=== PATIENT | female | born 1940 | race Caucasian/White ===

== ENCOUNTER 2020-08-11 09:06 | Observation (INO) | payer MEDICARE, SELFPAY ==
[2020-08-11] VITALS (22 sets, daily range): BP systolic 140–210; BP diastolic 51–102; PULSE 61–85; RESP 12–21; TEMP 36–36.8; O2SAT 93–98; BMI 24.5
--- NOTE | 2020-08-11 | ECHO_ITS ---
Patient Info Name: Reean Knapp Age: 80 years : 1940 Gender: Female Ht: 65 in Wt: 144 lbs BSA: 1.74 m2 HR: 70 bpm BP: 166 / 76 mmHg Heart Rhythm: Sinus Rhythm Technical Quality: Good Exam Date: 08/11/2020 1:27 PM Exam Location: [facility] Pulmonary Patient Status: Inpatient Admit Date: 08/11/2020 Staff Ordering Physician: Marj Shultz NP [employer] Off Bearer: Hector Rea RDCS, RT Attending Provider: Adam Quezada MD Exam Type: CA echo doppler color flow Study Info Complete two-dimensional, color flow and Doppler transthoracic echocardiogram is performed. Strain analysis performed. Summary 1. Complete two-dimensional, color flow and Doppler transthoracic echocardiogram is performed. 2. Normal left ventricular size with mild concentric left ventricular hypertrophy. Overall good left ventricular systolic function with a calculated ejection fraction of 62% and the visual ejection fraction 55-60%. No segmental wall motion abnormalities. Global longitudinal strain was -14% consistent with early systolic dysfunction. Diastolic dysfunction is present. 3. Left atrial chamber dimension is mildly enlarged. 4. There is mild to moderate aortic valve regurgitation. 5. There is mild mitral valve regurgitation. 6. There is mild tricuspid valve regurgitation. 7. Moderate pulmonary hypertension, estimated pulmonary arterial systolic pressure is 46 mmHg. 8. Dilated inferior vena cava with >50% collapse upon inspiration consistent with elevated right atrial pressure, 15 mmHg. 9. Normal sinus rhythm. Left Ventricle Left ventricular chamber dimension is normal. Left ventricular systolic function is normal, estimated at 55-60%. There is mildly increased left ventricular wall thickness. Left ventricular septal wall motion is normal. The left ventricular diastolic function is normal. E/e' 12.1 is moderately elevated. Right Ventricle Right ventricular chamber dimension is normal. Right ventricular systolic function is normal. Left Atria Left atrial chamber dimension is mildly enlarged. Right Atria Right atrial chamber dimension is normal. Aortic Valve The aortic valve is trileaflet. There is no aortic valve sclerosis. There is no aortic valve stenosis. There is mild to moderate aortic valve regurgitation. Pulmonic Valve The pulmonic valve is normal. There is no pulmonic valve stenosis. There is trace pulmonic regurgitation. Mitral Valve The mitral valve has thickened leaflets. There is no mitral valve stenosis. There is mild mitral valve regurgitation. Tricuspid Valve The tricuspid valve leaflets are normal. There is no significant tricuspid valve stenosis. There is mild tricuspid valve regurgitation. Moderate pulmonary hypertension, estimated pulmonary arterial systolic pressure is 46 mmHg. Pericardium/Pleural The pericardium appears normal. There is no pericardial effusion. Inferior Vena Cava Dilated inferior vena cava with >50% collapse upon inspiration consistent with elevated right atrial pressure, 15 mmHg. Aorta The aortic root size at the sinus of Valsalva is normal. The prox ascending aorta size is normal. Left Ventricular Outflow Tract Name Value Normal LVOT 2D LVOT Diame
--- NOTE | 2020-08-11 09:33 | ECG_ITS ---
Measurements Intervals [place] Rate: 72 P: 77 [place]: 172 QRS: 59 QRSD: 93 T: 29 QT: 407 QTc: 448 Interpretive Statements SINUS RHYTHM VENTRICULAR PREMATURE COMPLEXES VOLTAGE CRITERIA FOR LVH BASELINE ARTIFACT- II, III, AVR, AVF, V1, V3-V6 BORDERLINE ECG Electronically Signed On 08-11-2020 9:58:27 CDT by Keo Bates D.O.
--- NOTE | 2020-08-11 09:34 | ED.GENADULT ---
HPI - General Adult General Chief complaint: Unspecified <NELLY Camacho - Last Filed: 08/11/20 11:34> Stated complaint: elevated BP <NELLY Camacho - Last Filed: 08/11/20 11:34> Time Seen by Provider: 08/11/20 09:24 <NELLY Camacho - Last Filed: 08/11/20 11:34> Source: patient <Vickie MNELLY Villalobos - Last Filed: 08/11/20 11:34> Mode of arrival: ambulatory <NELLY Camacho - Last Filed: 08/11/20 11:34> Limitations: no limitations <NELLY Camacho - Last Filed: 08/11/20 11:34> History of Present Illness HPI narrative: Patient is an 80-year-old female who presents this morning with hypertension. Patient reports that BP meds increased last week from 25mg to 50mg of metoprolol. She denies chest pain or shortness of breath. Reports checking BP this morning and was elevated. Patient sees Saritha Rebollar APN at Dr. Argueta's office. <NELLY Camacho - Last Filed: 08/11/20 11:34> Related Data Home medications: Home Medications Medication Instructions Recorded Confirmed cholecalciferol (vitamin D3) 25 1,000 unit PO DAILY 03/12/19 08/03/20 mcg (1,000 unit) capsule <NELLY Camacho - Last Filed: 08/11/20 11:34> Allergies/adverse reactions: Allergies Allergy/AdvReac Type Severity Reaction Status Date / Time No Known Allergies Allergy Verified 08/11/20 09:23 <NELLY Camacho - Last Filed: 08/11/20 11:34> Review of Systems Review of Systems: Narrative: CONSTITUTIONAL: Denies fever, chills, or sweats. EYES: Denies visual changes, redness, or discharge. ENT: Denies rhinorrhea, congestion, sore throat, or otalgia. CARDIOVASCULAR: Denies chest pain, palpitations, or edema. Reports hypertension. RESPIRATORY: Denies cough or dyspnea. GASTROINTESTINAL: Denies abdominal pain, nausea, vomiting, or diarrhea. GENITOURINARY: Denies dysuria or hematuria. SKIN: Denies rash or itching. MUSCULOSKELETAL: Denies back pain, joint pain, or myalgia. NEUROLOGIC: Denies headache, numbness, dizziness, or weakness. PSYCHIATRIC: Denies anxiety or depression. <NELLY Camacho - Last Filed: 08/11/20 11:34> [facility] Past Medical History Medical History: Medical History Chicken pox Cholecystectomy planned 2007 Fibroid tumor Foot pain Measles Mononucleosis Osteopenia Palpitations Sleep apnea <NELLY Camacho - Last Filed: 08/11/20 11:34> Surgical History Surgical History: Surgical History H/O myomectomy H/O: hysterectomy 1988 History of appendectomy 1951 <NELLY Camacho - Last Filed: 08/11/20 11:34> Family History Family History: Family History Father Hypertension, Onset Age: 53 Subdural hematoma Mother Patient's mother is , Onset Age: 93 Hip fracture <NELLY Camacho - Last Filed: 08/11/20 11:34> Social History Social History: Social History (Updated 08/11/20 @ 11:17 by NELLY Camacho) Smoking status: Never smoker Alcohol intake: current Alcohol use details: occasional Substance use: never Living arrangements: with family Gender identity (if verbalized by the patient): Female <NELLY Camacho - Last Filed: 08/11/20 11:34> Comments At the time of signature, I have reviewed and agree with nursing past medical, surgical, social, and family history unless otherwise noted. Please see nursing chart for further information. There is no relevant family history pertinent to the presenting complaint. <NELLY Camacho - Last Filed: 08/11/20 11:34> Exam Narrative: Exam Narrative: GENERAL: Well-appearing, well-nourished, and in no acute distress. HEAD: Normocephalic, atraumatic. EYES: EOMI. No redness or drainage. Conjunctiva are normal
[2020-08-11] MEDS: LABETALOL HCL INJ 100 MG/20 ML VIAL 20 MG IV PUSH (09:55)
[2020-08-11 09:59] LABS: Basophils Absolute Auto 0.1 K/mm3 (0.0-0.1); Basophils Percent Auto 0.8 % (0.2-1.2); Eosinophils Absolute Auto 0.1 K/mm3 (0-0.3); Eosinophils Percent Auto 1.3 % (0-4.4); Hematocrit 39.1 % (37.0-47.0); Hemoglobin 12.6 g/dL (12.0-15.0); Immature Granulocyte Absolute 0.02 K/mm3 (0.00-0.031); Immature Granulocyte Percent A 0.3 % (0-0.5); Lymphocytes Absolute Auto 1.64 K/mm3 (0.9-3.2); Mean Corpuscular HGB Conc 32.2 g/dl (32-36); Mean Corpuscular Hemoglobin 30.3 pg (26-34); Mean Platelet Volume 12.9 fl (7.4-10.4); Monocytes Absolute Auto 0.7 K/mm3 (0.1-0.6); Monocytes Percent Auto 8.8 % (2.6-8.5); Neutrophils Percent Auto 66.8 % (45.5-73.1); Platelet Count Result 160 k/mm3 (150-375); Red Blood Count 4.16 M/mm3 (4.2-5.4); Red Cell Distribution Width 13.2 % (11.5-14.5); White Blood Count 7.5 K/mm3 (4.5-10.0)
[2020-08-11 10:09] LABS: Alanine Aminotransferase 20 U/L (4-35); Albumin Level 3.8 g/dL (3.5-5.1); Alkaline Phosphatase 66 U/L (38-126); Anion Gap 8 mmol/L (8-16); Aspartate Amino Transferase 30 U/L (14-36); Bilirubin,Total 0.3 mg/dL (0.2-1.3); Blood Urea Nitrogen 18 mg/dL (7-17); Calcium 9.4 mg/dL (8.4-10.2); Carbon Dioxide 25 mmol/L (22-30); Chloride 108 mmol/L (98-107); Estimated CRCL calculation 44 ml/min; Estimated Glomerular Filt Rate > 60; Glucose 95 mg/dL (65-105); Sodium 141 mmol/L (137-145)
[2020-08-11 11:07] LABS: Troponin I < 0.012 ng/mL (0.000-0.034)
--- NOTE | 2020-08-11 13:14 | ADMGEN ---
This patient, Reena Knapp, was admitted to [facility] Surg Room 325-01. Patient/family oriented to hospital policies and general routines including ID bracelet, bed and alarms, visiting hours, pain management, procedures, bathroom and other care routines, personal items, smoking policy, room service/diet, and visiting hours. Information on how to activate the Rapid Response Team has been discussed. Patient/Family are encouraged to report perceived risks to care and to ask questions if they do not understand what they are told or what they should do.
[2020-08-11 13:38] LABS: Troponin I < 0.012 ng/mL (0.000-0.034)
--- NOTE | 2020-08-11 15:19 | PM.IMHP ---
H&P: HPI History of Present Illness Date/Time: 08/11/20 15:19 This is a 80-year-old female patient who has a history of hypertension. The patient was on low-dose metoprolol for many years. She stated that she initially was placed on metoprolol due to palpitations that she was having. However her blood pressures continue to increase and so they doubled up on her metoprolol 1 week ago. The patient stated that she was constantly checking her blood pressures and they still continue to go up. Today she noticed that her systolic was over 200 after taking her medications. She does not understand why her blood pressures continue to go up. She stated she did eat a couple salty meals this weekend but did not think that would cause it. The patient has been taking metoprolol 50 mg extended relief for 1 week now without any change in her blood pressure. The patient was given labetalol in the emergency room. Her highest blood pressure reading was 210/99 in the emergency room. Her most recent blood pressure is down to 156/77. She has no chest pain or palpitations. No complaints of any anxiety. She states she does have sleep apnea and she uses her CPAP machine. The patient is being admitted for observation on the date of service of 08/11/2020. Chief Complaint: hypertensive urgency Review of Systems Review of Systems: All systems reviewed & are unremarkable except as noted in HPI and below Constitutional: Constitutional: Reports as per HPI and Reports no additional constitutional complaints Eyes: Eyes: Reports as per HPI and Reports no additional eye complaints ENT: Reports system reviewed and no additional complaints, except as documented and Reports Normal hearing present Cardiovascular: Cardiovascular: Reports no additional cardiovascular complaints Respiratory: Respiratory: Reports no additional respiratory complaints and Reports no additional respiratory complaints Gastrointestinal: Gastrointestinal: Reports as per HPI and Reports no additional gastrointestinal complaints Musculoskeletal: Musculoskeletal: Reports no additional musculoskeletal complaints Integumentary/Breasts: Skin/Breast: Reports system reviewed and no additional complaints, except as docu and Reports as per HPI Neurologic: Reports system reviewed and no additional complaints, except as documented, Reports as per HPI and Reports Normal hearing present Psychiatric: Psychiatric: Reports no additional psychiatric complaints and Reports as per HPI Endocrine: Endocrine: Reports no additional endocrine complaints Hematologic/Lymphatic: Hematologic/Lymphatic: Reports no additional hematologic/lymphatic complaints Allergic/Immunologic: Allergic/Immunologic: Reports no additional allergic/immunologic complaints [facility] Past Medical History Medical History Chicken pox Cholecystectomy planned 2007 Fibroid tumor Foot pain Measles Mononucleosis Osteopenia Palpitations Sleep apnea Surgical History Surgical History H/O myomectomy H/O: hysterectomy 1988 History of appendectomy 1951 Family History Family History Father Hypertension, Onset Age: 53 Subdural hematoma Mother Patient's mother is , Onset Age: 93 Hip fracture Social History Social History (Updated 08/11/20 @ 15:26 by Marj Shultz NP) Social History: The patient smoked briefly when she was in high school. 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 She is and lives with her he is a durable power insurance attorney for healthcare. The patient is a full code. The patient has 1 child. She occasionally drinks a glass a wine she does not use any marijuana or illicit drugs. Smoking status: Never smoker Second hand tobacco smoke exposure: No Alcohol intak
[2020-08-11 16:58] LABS: Troponin I < 0.012 ng/mL (0.000-0.034)
[2020-08-11] MEDS: ACETAMINOPHEN 325 MG TABLET 650 MG PO (20:32)
[2020-08-12] VITALS: PULSE 63
[2020-08-12 04:00] VITALS: PULSE 63
[2020-08-12 05:52] VITALS: BP 152/76; PULSE 64; RESP 16; TEMP 36.2; O2SAT 93
[2020-08-12 06:12] LABS: Hematocrit 38.9 % (37.0-47.0); Hemoglobin 12.9 g/dL (12.0-15.0); Mean Corpuscular HGB Conc 33.2 g/dl (32-36); Mean Corpuscular Hemoglobin 30.4 pg (26-34); Mean Corpuscular Volume 91.5 fl (80-100); Mean Platelet Volume 12.9 fl (7.4-10.4); Platelet Count Result 167 k/mm3 (150-375); Red Blood Count 4.25 M/mm3 (4.2-5.4); Red Cell Distribution Width 13.2 % (11.5-14.5); White Blood Count 5.9 K/mm3 (4.5-10.0)
[2020-08-12 06:22] LABS: Lactic Acid Reflex 0.9 mmol/L (0.7-2.1)
[2020-08-12 06:25] LABS: Alanine Aminotransferase 19 U/L (4-35); Albumin Level 3.7 g/dL (3.5-5.1); Alkaline Phosphatase 67 U/L (38-126); Anion Gap 7 mmol/L (8-16); Aspartate Amino Transferase 30 U/L (14-36); Bilirubin,Total 0.4 mg/dL (0.2-1.3); Blood Urea Nitrogen 15 mg/dL (7-17); Calcium 9.3 mg/dL (8.4-10.2); Carbon Dioxide 27 mmol/L (22-30); Chloride 106 mmol/L (98-107); Estimated CRCL calculation 50 ml/min; Estimated Glomerular Filt Rate > 60; Glucose 99 mg/dL (65-105); Sodium 140 mmol/L (137-145)
[2020-08-12 06:45] LABS: Band Neutrophils Percent 1 % (0-6); Eosinophils Absolute Manual 0.23 K/mm3 (0.02-0.5); Eosinophils Percent Manual 4 % (0-4); Lymphocytes Absolute Manual 1.88 K/mm3 (1.1-4.5); Monocytes Absolute Manual 0.53 K/mm3 (0.1-0.90); Monocytes Percent Manual 9 % (3-9); Neutrophils Absolute Manual 3.24 K/mm3 (1.7-7.2); Neutrophils Percent Manual 54 % (46-73); Total Cells Counted 100
[2020-08-12 06:46] LABS: Platelet Estimate Adequate (Adequate)
[2020-08-12 08:00] VITALS: PULSE 80
[2020-08-12] MEDS: METOPROLOL SUCCINATE EXT REL 25 MG, METOPROLOL SUCCINATE EXT REL 50 MG 75 MG PO (08:32)
[2020-08-12] MEDS: ENOXAPARIN 40 MG/0.4 ML SYRINGE SUB-Q (08:34)
[2020-08-12] MEDS: amLODIPine BESYLATE 5 MG TABLET PO (08:34)
[2020-08-12] MEDS: ACETAMINOPHEN 325 MG TABLET 650 MG PO (08:36)
[2020-08-12 10:10] VITALS: BP 174/74
--- NOTE | 2020-08-12 11:32 | PM.DS ---
DS: Admitting Diagnosis Admitting Diagnosis Admitting Diagnosis: Elevated blood pressure DS: Discharge Diagnosis Discharge Diagnosis (1) Hypertensive urgency: Code(s): I16.0 - Hypertensive urgency Status: Acute DS: Summary Hospital Course Hospital Course: The patient is an 80-year-old woman with a history of hypertension, who presented to the emergency room with elevated blood pressures of 180 systolic. The patient otherwise had a headache and was concerned about her blood pressure. She states 1 week ago she was at her ENT doctor appointment and at that time her blood pressure was 200 systolic. She became very concerned with this into an appointment with her primary care provider who she saw in the increased her metoprolol from 25 mg daily to 50 mg daily. She continue to check her blood pressure multiple times a day and continue to have elevated blood pressure readings. She became concerned prior to arrival and blood pressure was elevated in tried to contact her primary care provider. They did not get back to her quick enough so he decided to come to the ER for further evaluation. Initial vitals showed she was afebrile, non tachycardic, elevated blood pressure at 210/99, normal oxygenation respiratory rate on room air. Initial labs were normal with a CBC with differential, CMP, and negative troponins x3. The patient was given labetalol in the emergency room with some improvement of her blood pressure. The patient was admitted into the hospital for elevated blood pressure and monitoring of her symptoms. Echocardiogram was obtained which showed normal LV size, mild concentric LVH, normal EF at 62%, diastolic dysfunction. Moderate pulmonary hypertension for which she is already on a CPAP at night. Patient was started on 5 mg of amlodipine in the morning, increased her metoprolol to 75 mg and observed on telemetry overnight. Her blood pressure this morning was 152/76 in overnight was 140/70. This is improvement from her arrival and we do not want to drop her blood pressure too much, needs to gradually decrease over time. Patient's heart rate remained stable on telemetry with signs of arrhythmia. The patient was anxious upon my evaluation of her with a list of questions and concerns about her elevated blood pressure readings. The patient has been under some stress with family coming in this weekend, she did eat a lot of salty foods this past weekend. I explained to her that she needs to be on a low salt diet, I recommended not taking her blood pressure for a few days unless she is feeling symptomatic with lightheadedness, dizziness, headache. I called her primary care provider in talk to their nurse practitioner Vickie Rebollar who had just seen the patient week prior for her elevated blood pressure readings. I explained to her starting amlodipine and they will get her in on Monday08/14/2020 for a blood pressure check follow-up. Patient also has an annual examination next week. the patient understands and agrees with the plan return to ER warnings given. all questions answered. Status at Discharge Cognitive/behavioral status at discharge: Stable, improved. Time Spent with Patient Time attestation: Total time spent providing and/or coordinating discharge services: 43 Time spent: Greater than 30 minutes Exam Narrative: Exam Narrative: General: 80-year-old woman sitting up in bed, watching TV. Appears comfortable, slightly anxious. In no acute distress. Skin: No jaundice or cyanosis. Good skin turgor. Neck: Full range of motion. Supple. Respiratory: Lungs are clear to auscultation bilaterally. No bony chest wall tenderness. Cardiovascular: The heart has a regular rate and rhythm without murmur. No carotid bruits bilaterally. Lower extremities: No lower extremity edema. Distal pulses are easily palpated. No calf tenderness to palpation. Gastrointestinal: The abdome
[2020-08-12 12:00] VITALS: PULSE 67
--- NOTE | 2020-08-12 13:13 | PC.NURSE ---
Pt has been discharged. IV has been removed and tele monitor has been removed. Pt and her have had discharge instructions reviewed with them, and both exhibited good understanding of discharge instructions. Pt was assisted to the front of the building in a wheelchair by staff.
== END 2020-08-12 12:55 | disposition home or self-care (01) ==
LOC: ANHED 11:32 → ANH3MEDSUR 12:26
PROVIDERS: Nurse Practitioner; Admitting Provider Family Medicine; Emergency Provider Nurse Practitioner; PCP Internal Medicine; Visit Provider Internal Medicine
DX: I16.0 Hypertensive urgency (principal); I10 Essential (primary) hypertension
CPT/HCPCS: 36415; 80053; 83605; 83735; 84443; 84484; 85025; 93005; 93306; 96372; 96374; 99285; A9270; G0378; J1650

== ENCOUNTER 2020-09-16 07:25 | Outpatient (CLI) | payer MEDICARE, SELFPAY ==
--- NOTE | 2020-10-12 12:19 | WPDSLEEPSTUD ---
Sleep Study Date of Study: 09/16/20 Ordering Provider: Saritha Rebollar NP Interpreting Physician: Fatmata Leon MD Sleep Study Type: Split Polysomnogram Height: 1.65 m Weight: 65.771 kg Body Mass Index: 24.1 Neck Circumference (inches): 14 [place]: 7 Reason for Sleep Study Loud snoring, witnessefd apnea Sleep History Reena Knpap is an 80 year old female with a history of bad snoring for years, witnessed apnea. She was tested and found to have obstructive sleep apnea and started on CPAP. Recently while admitted for blood pressure problem, obstructive sleep apnea was suspected to be part of her current problem. She does not awaken from sleep feeling short of breath or having nighttime heartburn, belching or coughing. She rarely has trouble sleep with a cold. She does not wake up gasping for breath at night or sweats excessively at night. She rarely notices her heart pounding or beating irregularly night. She rarely falls asleep during the day. She occasionally falls asleep while watching the 10:00 a.m. use at night. She does not fall asleep while driving. She does not have loss of muscle tone with strong emotion. She does not have daytime difficulties due to excessive sleepiness. She does not feel paralyzed on waking or falling asleep. She does not have vivid dream like seems upon awakening or falling asleep. She does not feel afraid to go to sleep. She denies nightmares. She remembers her dreams and rarely has racing thoughts. She does not feel sad or depressed. She occasionally has anxiety. She rarely has muscular tension. She does not notice part of her body jerking and she does not kick at night. She does not have crawling and aching feelings in her legs. She frequently has hip pain at night. She does not grind her teeth during sleep. She frequently has bothered by pain during the day and frequently awakened by pain at night. She frequently wakes up feeling stiff in the morning with sore achy muscles. She has fatigue, insomnia and takes Tylenol or ibuprofen for pain. Normal bedtime:10:30 -11:00 p.m., taking a minimum of 30 minutes to fall asleep, she wakes 3-4 times at night to use the bathroom, and if she cannot fall asleep she works [employer] puzzle or has a drink of milk. It usually takes 10 minutes to fall asleep again. In addition his urinating she wakes at night due to pain in her hips or something on her mine. She sometimes takes naps in the afternoon or evening she may fall asleep while reading in the evening. She feels refreshed after short nap. Habits: Had tobacco 60 years ago; caffeine 2 cups half decaf daily, less than 1 alcoholic beverage a day, no recreational drugs. [facility] Past Medical History Medical History (Updated 10/12/20 @ 23:07 by Fatmata Leon MD) Chicken pox Cholecystectomy planned 2007 Fibroid tumor Foot pain Measles Mononucleosis Osteopenia Palpitations Sleep apnea Surgical History Surgical History H/O myomectomy H/O: hysterectomy 1988 History of appendectomy 1951 Family History Family History Father Hypertension, Onset Age: 53 Subdural hematoma Mother Patient's mother is , Onset Age: 93 Hip fracture Social History Social History (Updated 08/11/20 @ 15:26 by Marj Shultz NP) Social History: The patient smoked briefly when she was in high school. 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 She is and lives with her he is a durable power assistant city attorney for healthcare. The patient is a full code. The patient has 1 child. She occasionally drinks a glass a wine she does not use any marijuana or illicit drugs. Smoking status: Never smoker Second hand tobacco smoke exposure: No Alcohol intake: current Alcohol use details: occasional Substance u
[2020-10-12 23:17] VITALS: BMI 24.1
== END 2020-09-17 05:56 | disposition home or self-care (01) ==
LOC: ANHCSM 07:32
PROVIDERS: PCP Internal Medicine; Visit Provider Nurse Practitioner
DX: G47.33 Obstructive sleep apnea (adult) (pediatric) (principal)
CPT/HCPCS: 95811

== ENCOUNTER 2020-11-26 16:52 | Outpatient (CLI) | payer MEDICARE, SELFPAY ==
--- NOTE | ~2020-11-26 | DEXA_ITS ---
Bone Density Report Name: Reena Knapp Age: 80 Sex: Female Ethnicity: White Date of : 1940 Indication: osteopenia; monitoring treatment; parental hip fracture; height loss; hysterectomy; postmenopausal Referring Provider: Saritha Rebollar Study: Bone densitometry was performed. Exam Date: November 26, 2020 Accession number: [id number] Bone Density: Region BMD T-score Z-score Classification AP Spine (L1-L4) 0.865 -1.7 1.1 Osteopenia Femoral Neck (Left) 0.712 -1.2 1.1 Osteopenia Total Hip (Left) 0.863 -0.7 1.5 Normal Total Hip Bilateral Avg 0.890 -0.4 1.7 Normal Femoral Neck (Right) 0.748 -0.9 1.4 Normal Total Hip (Right) 0.916 -0.2 1.9 Normal World Health Organization criteria for BMD impression classify patients as: Normal (T-score at or above -1.0), Osteopenia (T-score between -1.0 and -2.5), or Osteoporosis (T-score at or below -2.5). 10-year Fracture Risk: FRAX not reported because: Treated for osteoporosis Previous Exams: Region Exam Age BMD T-score BMD Change BMD Change Date g/cm2 vs Baseline vs Previous AP Spine(L1-L4) 11/26/2020 80 0.865 -1.7 0.011(1.3%)# -0.015(-1.7%) 11/25/2016 76 0.880 -1.5 0.026(3.0%)# 0.026(3.0%)# 04/28/2012 72 0.854 -1.8 Total Hip(Left) 11/26/2020 80 0.863 -0.7 -0.036(-4.0%)# -0.064(-6.9%)* 11/25/2016 76 0.927 -0.1 0.028(3.1%)# 0.028(3.1%)# 04/28/2012 72 0.899 -0.4 Total Hip(Right) 11/26/2020 80 0.916 -0.2 0.040(4.6%)# -0.015(-1.6%) 11/25/2016 76 0.931 -0.1 0.056(6.4%)# 0.056(6.4%)# 04/28/2012 72 0.876 -0.5 *Denotes significance at 95% confidence level, LSC for AP Spine = 0.022 g/cm2, LSC for Total Hip = 0.027 g/cm2 Clinical Information Provided by Patient: Parent has had a hip fracture Is being treated for osteoporosis Has used the following medications: Evista (i.e. raloxifene), Vitamin D Has the following medical conditions: Hysterectomy Patient maximum height was 66 Menopause Age: 50 Drinks caffeinated beverages Onset of menses at age 12 Number of children 1 Impression: The patient has low bone mass, based on the Total Spine T-score. The patient has risk factors, including: parental hip fracture. The BMD for the Total Hip(Left) decreased, changing by -6.9% since the last DXA exam. Discussion: SIGNIFICANT BONE LOSS OBSERVED. Adherence to therapy (including calcium and vitamin D intake) should be assessed. If compliance is not a factor, rosemarie
--- NOTE | ~2020-11-26 | MM_ITS ---
EXAMINATION: MM screening [place] BI w darby HISTORY: Screening mammogram TECHNIQUE: Craniocaudal and mediolateral oblique 3-D tomosynthesis images were obtained and synthetic 2-D images were generated. CAD analysis was submitted and interpreted. COMPARISON: 11/25/2016, 01/16/2014, 04/28/2012 bilateral digital screening mammogram examinations BREAST PARENCHYMAL COMPOSITION: There are scattered areas of fibroglandular density. FINDINGS: There is no evidence of suspicious mass, calcification, or architectural distortion to sugg est malignancy in either breast. There has been no suspicious interval change. IMPRESSION: 1. No mammographic evidence of malignancy. 2. Recommend routine screening mammography in one year. BI-RADS Category 1: Negative Reviewed, dictated and finalized at location A.
== END 2020-11-26 16:53 | disposition home or self-care (01) ==
LOC: ANHIMG 16:53
PROVIDERS: PCP Internal Medicine; Visit Provider Nurse Practitioner
DX: Z12.31 Encounter for screening mammogram for malignant neoplasm of breast (principal); Z78.0 Asymptomatic menopausal state; M85.88 Other specified disorders of bone density and structure, other site; M85.852 Other specified disorders of bone density and structure, left thigh
CPT/HCPCS: 77063; 77067; 77080

== ENCOUNTER 2021-07-08 00:44 | Day surgery (SDC) | payer MEDICARE, SELFPAY ==
[2021-07-07 17:00] VITALS: BMI 24.0
[2021-07-08] VITALS (9 sets, daily range): BP systolic 114–180; BP diastolic 66–114; PULSE 58–112; RESP 12–18; TEMP 36.6; O2SAT 94–99
--- NOTE | 2021-07-08 08:30 | ECG_ITS ---
Measurements Intervals [place] Rate: 81 P: SC: 0 QRS: -4 QRSD: 90 T: 69 QT: 379 QTc: 441 Interpretive Statements ATRIAL FIBRILLATION NONSPECIFIC ST & T-WAVE ABNORMALITY ABNORMAL ECG COMPARED TO ECG 08/11/2020 09:38:18 ATRIAL FIBRILLATION NOW PRESENT T-WAVE ABNORMALITY NOW PRESENT Electronically Signed On 07-08-2021 17:47:39 CDT by Kendrick Toledo M.D.
--- NOTE | 2021-07-08 08:30 | ECG_ITS ---
Measurements Intervals [place] Rate: 58 P: 76 AL: 153 QRS: 60 QRSD: 94 T: 23 QT: 444 QTc: 440 Interpretive Statements SINUS BRADYCARDIA BORDERLINE ECG BASELINE ARTIFACT COMPARED TO ECG 07/08/2021 09:54:24 HEART RATE HAS DECREASED Electronically Signed On 07-08-2021 17:52:05 CDT by Kendrick Toledo M.D.
[2021-07-08 10:25] LABS: Anion Gap 4 mmol/L (8-16); Blood Urea Nitrogen 20 mg/dL (7-17); Calcium 8.9 mg/dL (8.4-10.2); Carbon Dioxide 29 mmol/L (22-30); Chloride 107 mmol/L (98-107); Estimated CRCL calculation 43 ml/min; Estimated Glomerular Filt Rate > 60; Glucose 102 mg/dL (65-110); Magnesium 2.1 mg/dL (1.6-2.3); Potassium 4.5 mmol/L (3.4-5.0); Sodium 140 mmol/L (137-145)
--- NOTE | 2021-07-08 10:57 | WPDHPUPDATE1 ---
History and Physical Update Update Date/Time: 07/08/21 10:57 History and Physical has been reviewed, including an updated exam of the patient. There are NO changes in the patient's condition. Risks, benefits, and alternatives have been discussed and questions answered. Patient agrees to proceed with procedure.
--- NOTE | 2021-07-08 10:58 | WPDMODSED ---
Moderate Sedation Note-Pt Data Patient Data Diagnosis: Atrial fibrillation Present Complaint: None Procedure to be performed/Plan: Elective electrical cardioversion Allergies Allergy/AdvReac Type Severity Reaction Status Date / Time No Known Allergies Allergy Verified 07/08/21 10:00 Home Medications Medication Instructions Recorded Confirmed Type cholecalciferol (vitamin D3) 25 1,000 unit PO DAILY 03/12/19 07/07/21 History mcg (1,000 unit) capsule metoprolol succinate 25 mg 25 mg PO QAM 30 days #90 tabs 01/14/21 07/07/21 Rx tablet,extended release 24 hr (Toprol XL) metoprolol succinate 50 mg 50 mg PO DAILY #90 tabs 01/14/21 07/07/21 Rx tablet,extended release 24 hr raloxifene 60 mg tablet (Evista) 60 mg PO DAILY #90 tabs 04/29/21 07/07/21 Rx amlodipine 5 mg tablet 0.5 tablet PO PRN PRN htn 07/07/21 07/07/21 History apixaban 5 mg tablet (Eliquis) 5 mg PO BID 07/07/21 07/07/21 History Current Medications: Active Medications Sodium Chloride (Normal Saline Iv) 1,000 mls @ 30 mls/hr IV CONT .Q24H LOCO Sedation/Anesthesia: No previous sedation/anesthesia problems (including family history). [facility] Past Medical History Medical History Chicken pox Cholecystectomy planned 2007 Fibroid tumor Foot pain Measles Mononucleosis Osteopenia Palpitations Sleep apnea Surgical History Surgical History H/O myomectomy H/O: hysterectomy 1988 History of appendectomy 1951 Family History Family History Father Hypertension, Onset Age: 53 Subdural hematoma Mother Patient's mother is , Onset Age: 93 Hip fracture Social History Social History Social History: The patient smoked briefly when she was in high school. 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 She is and lives with her he is a durable power disability attorney for healthcare. The patient is a full code. The patient has 1 child. She occasionally drinks a glass a wine she does not use any marijuana or illicit drugs. Caffeine-Coffee 1cup Smoking status: Former smoker Tobacco type: cigarettes Second hand tobacco smoke exposure: Yes (as a child) Alcohol intake: current Alcohol use details: occasional glass of wine Substance use: never Substance use type: does not use Living arrangements: with family Gender identity (if verbalized by the patient): Female Sexual Orientation (if Verbalized by the Patient): Straight or Heterosexual Spiritual care concerns: No Mod Sed Physical Exam Physical Exam Pre Procedural Exam: Normal: Appearance, Eyes, Ears, Nose, Neck (Supple, normal range of motion), Throat (Posterior hypopharynx clear, nonerythematous), Airway (Normal anatomy, no obstruction), Lungs (Clear to auscultation bilaterally), Heart Size, Heart Rate, Neuro Exam, Abdomen, Liver, Extremities and Skin and Variation: Heart Rhythm (Irregularly irregular) Hours since solid foods: 12 Hours since liquid intake: 12 Mallampati Classification: class II Internal Medicine - PN: Obj Da Vital Signs Vital Signs: Vital Signs - 24 hr 07/08/21 10:06 Temperature 36.6 C Pulse Rate 85 Respiratory Rate 15 Blood Pressure 168/86 H Pulse Oximetry 96 Oxygen Delivery Room Air Meds/Results Medications: Active Medications Generic Name Dose Route Start Last Admin Trade Name Freq PRN Reason Stop Dose Admin Sodium Chloride 1,000 mls @ 30 mls/hr 07/08/21 08:30 Normal Saline Iv IV CONT .Q24H LOCO Labs CBC & Chem 7: 07/08/21 10:03 Labs: Laboratory Results - last 24 hr 07/08/21 10:03 Sodium 140 Potassium 4.5 Chloride 107 Carbon Dioxide 29 Anion Gap 4 L BUN 20 H Creatinine 0
--- NOTE | 2021-07-08 11:34 | WPDCARDVER ---
Cardioversion Cardioversion Date of procedure: 07/08/21 Procedure: Elective electrical cardioversion Pre-op diagnosis: Atrial fibrillation Post-op diagnosis: Same Indications: Atrial fibrillation Description of procedure: Brief history present illness: Patient is a pleasant 81-year-old female with history of NENITA on CPAP, recent diagnosis of atrial fibrillation continue systemic anticoagulation for greater than 4 weeks without interruption and a history of hypertension referred for elective electrical cardioversion in attempt to restore sinus rhythm. Procedure in detail: After verbal and written informed consent was obtained the patient risks, benefits, and alternatives explained in detail the patient agreed to proceed with the plan of care as outlined above. Patient was evaluated at bedside in the [facility] procedure room. On examination, neck was supple with normal range of motion, no restrictions to opening of the oral cavity, jaw angle and posterior hypopharynx was clear. Lungs were clear to auscultation. Patient was placed in appropriate 30 to 45 degree angle in a supine position. Patient was monitored throughout the study with telemetry, oxygen saturation, end-tidal CO2 monitoring, blood pressure, heart rate, and respirations. Anterior and posterior defibrillator pads placed in the appropriate positions. After confirmation of adequate sedation electrical cardioversion was carried out without complication. Patient tolerated the procedure well without difficulty. Patient brought her home CPAP unit to wear throughout for support with sedation which was evaluated/assessed by respiratory therapy prior to and during the procedure. Sedation: Moderate Sedation/Anesthesia administration: Patient denied previous intolerance or complications with anesthesia/sedation. Please see sedation note for documentation of the pre-procedure physical examination. A total of mg intravenous Versed and a total of mcg intravenous Fentanyl in multiple divided doses was utilized for moderate sedation. Sedation start time was 1114 and end time was 1127 for a total of 13 minutes [id number] intra-procedure time. Sedation was administered by a qualified observer Darlin Dawkins RN under my supervision with intra-procedure [id number] observation and management throughout the entirety of the procedure. There were no other issues or complications and patient tolerated the procedure well and sedation protocol well and I was present for the entirety. Findings: Elective electrical cardioversion: After confirmation of adequate sedation and persistence of atrial fibrillation, 200 joules synched biphasic energy was delivered will with persistent atrial fibrillation with RVR. Once adequate sedation was once again confirmed, a 2nd cardioversion with 200 joules synched biphasic energy was delivered with immediate and sustained adventism of sinus rhythm. Twelve lead EKG was obtained postprocedure confirming sinus rhythm. Complications: None Conclusion: Successful adventism of sinus rhythm on the 2nd cardioversion attempt. Recommendations: Continue current medical therapy particularly systemic anticoagulation without interruption special for the next 30 days but otherwise for the foreseeable future unless otherwise directed.
--- NOTE | 2021-07-08 12:31 | SUR.PHASEII ---
Discharge instructions read and given to pt and spouse. Pt and spouse states understanding. pt to call office to see if they need to make follow up appointment for ekg in a week or if they just walk in.
== END 2021-07-08 12:51 | disposition home or self-care (01) ==
LOC: ANHCATHLAB 00:45 → ANHCARD 11:58 → ANHCATHLAB 07-15 11:56
PROVIDERS: PCP Internal Medicine; Visit Provider Internal Medicine Cardiovascular Disease
PROC: 5A2204Z Restoration of Cardiac Rhythm, Single (ICD-10-PCS; principal; 2021-07-08 10:00)
DX: I48.91 Unspecified atrial fibrillation (principal)
CPT/HCPCS: 36415; 80048; 83735; 92960; J2250; J2310; J3010; J7040

== ENCOUNTER 2023-09-20 13:14 | Outpatient (CLI) | payer MEDICARE, SELFPAY ==
--- NOTE | ~2023-09-20 | DEXA_ITS ---
Bone Density Report Name: LOPEZ JACQUES Age: 83 Sex: Female Ethnicity: White Date of : 1940 Indication: osteopenia; parental hip fracture; height loss; hysterectomy; Referring Provider: SUZIE PHAN Study: Bone densitometry was performed. Exam Date: September 20, 2023 Accession number: [id number] Bone Density: Region BMD T-score Z-score Classification AP Spine(L1-L4) 0.822 -2.0 0.8 Osteopenia Femoral Neck (Left) 0.729 -1.1 1.4 Osteopenia Total Hip (Left) 0.839 -0.8 1.4 Normal Femoral Neck (Right) 0.676 -1.6 0.9 Osteopenia Total Hip (Right) 0.850 -0.8 1.5 Normal Total Hip Mean 0.845 -0.8 1.5 Normal World Health Organization criteria for BMD impression classify patients as: Normal (T-score at or above -1.0), Osteopenia (T-score between -1.0 and -2.5), or Osteoporosis (T-score at or below -2.5). 10-year Fracture Risk(1): Major Osteoporotic Fracture 24% Hip Fracture 15% Reported Risk Factors: [place] (), Neck BMD=0.676, BMI=23.7, parental fracture (1) FRAX(R) Version 3.08. Fracture probability calculated for an untreated patient. Fracture probability may be lower if the patient has received treatment. Previous Exams: Region Exam Age BMD T-score BMD Change BMD Change Date g/cm2 vs Baseline vs Previous AP Spine (L1-L4) 09/20/2023 83 0.822 -2.0 -0.058 (-6.6%) -0.043 (-5.0%) 11/26/2020 80 0.865 -1.7 -0.015 (-1.7%) -0.015 (-1.7%) 11/25/2016 76 0.880 -1.5 Total Hip(Left) 09/20/2023 83 0.839 -0.8 -0.088 (-9.5%) -0.024 (-2.8%) 11/26/2020 80 0.863 -0.7 -0.064 (-6.9%) -0.064 (-6.9%) 11/25/2016 76 0.927 -0.1 Total Hip(Right) 09/20/2023 83 0.850 -0.8 -0.081 (-8.7%) -0.066 (-7.2%) 11/26/2020 80 0.916 -0.2 -0.015 (-1.6%) -0.015 (-1.6%) 11/25/2016 76 0.931 -0.1 *Denotes significance at 95% confidence level, LSC for AP Spine = 0.022 g/cm2, LSC for Total Hip = 0.027 g/cm2 Clinical Information Provided by Patient: Parent has had a hip fracture Has used the following medications: Vitamin D Has the following medical conditions: Hysterectomy Patient maximum height was 66.0 Menopause Age: 50 Does not regularly consume dairy products Drinks caffeinated beverages Onset of menses at age 12 Number of children 1 Impression: The patient has low bone mass, based on the Total Spine T-score. The patient has an estimated ten-year risk of hip fracture of 15% and an estimat
== END 2023-09-20 13:15 | disposition home or self-care (01) ==
PROVIDERS: PCP Internal Medicine; Visit Provider Nurse Practitioner
DX: Z78.0 Asymptomatic menopausal state (principal); M85.88 Other specified disorders of bone density and structure, other site; M85.852 Other specified disorders of bone density and structure, left thigh; M85.851 Other specified disorders of bone density and structure, right thigh
CPT/HCPCS: 77080

== ENCOUNTER 2024-09-09 09:24 | Outpatient (CLI) | payer MEDICARE, SELFPAY ==
--- NOTE | ~2024-09-09 | MM_ITS ---
EXAMINATION: MM screening [facility] BI w [facility] HISTORY: Screening TECHNIQUE: Craniocaudal and mediolateral oblique 3-D tomosynthesis images were obtained and synthetic 2-D images were generated. CAD analysis was submitted and interpreted. COMPARISON: Comparison to multiple prior studies sequentially, with oldest reviewed study dated 06/29. BREAST PARENCHYMAL COMPOSITION: There are scattered areas of fibroglandular density. FINDINGS: There is no evidence of suspicious mass, calcification, or architectural distortion to sug gest malignancy in either breast. Scattered benign-appearing calcifications are present. IMPRESSION: 1. No mammographic evidence of malignancy. 2. Recommend routine screening mammography in one year. BI-RADS Category 2: Benign finding(s). Reviewed, dictated and finalized at location B.
--- OUTSIDE RECORDS SUMMARY | 2024-09-09 09:39 | XMS_ITS | Clinical Summary ---
Author Organization [facility] Address [address] Attn: Epic Prelude ADT [place] MENA [address] Care Team Providers Care Hair Boiler Name Role Phone Ruddy Arreguin MD Primary Care Provider Social History Tobacco Use Types Packs/Day Years Used Date Smoking Tobacco: Never Assessed Comments Unknown Sex and Gender Information Value Date Recorded Sex Assigned at Not on file Legal Sex Female 4:51 AM UPHOLSTERER INSIDE Gender Identity Not on file Sexual Orientation Not on file Plan of Treatment Health Maintenance Due Date Last Done Comments DTAP/TDAP/TD VACCINES (1 - Tdap) 01/26/1959 PNEUMOCOCCAL VACCINE 50+ YEARS (1 of 1 - PCV) 01/26/19 90 ZOSTER VACCINE (1 of 2) 01/26/1990 OSTEOPOROSIS SCREENING 01/26/2005 RSV VACCINE (60+ or ) (1 - 1-dose 75+ series) 01/26/2015 INFLUENZA VACCINE (#1) 2024 Care Teams Hair Boiler Relationship Specialty [place] [address] [address] PCP - General 10/05/99
--- OUTSIDE RECORDS SUMMARY | 2024-09-09 09:39 | XMS_ITS | Encounter Summary ---
Author Organization [facility] Address [address] [place] [address] Care Team Providers Care Senior Data Warehouse Developer Name Role Phone Ruddy Arreguin MD Primary Care Provider Encounter Details Date Type Department Care Team (Late st Contact Info) Description 01/22/2007 Outpatient Historical HIS MRI DEPT Roberto Harris MD NO ADDRESS ON FILE Social History Tobacco Use Types Packs/Day Years Used Date Smoking Tobacco: Never Assessed Comments Unknown Sex and Gender Information Value Date Recorded Sex Assigned at Not on file Legal Sex Female 4:51 AM COSMETOLOGIST APPRENTICE Gender Identity Not on file Sexual Orientation Not on file documented as of this encounter Plan of Treatment Not on file documented as of this encounter Procedures Procedure Name Priority Date/Time Associated Diagnosis Comments POC CREATININE Routine 01/22/2007 8:57 AM COSMETOLOGIST APPRENTICE documented in this encounter Results * POC CREATININE (01/22/2007 8:57 AM COSMETOLOGIST APPRENTICE) CREATININE POC 1.0 0.6 - 1.3 mg/dL INTERFACE SYSTEM 01/22/2007 8:57 AM COSMETOLOGIST APPRENTICE us Roberto Harris MD POINT OF CARE TESTING Edit ed INTERFACE SYSTEM Refer to clinic/hospital department documented in this encounter Visit Diagnoses Not on filedocumented in this encounter Care Teams Senior Data Warehouse Developer Relationship Specialty [place] [address] [address] PCP - General 10/05/99 documented as of this encounter
--- OUTSIDE RECORDS SUMMARY | 2024-09-09 09:39 | XMS_ITS | Encounter Summary ---
Author Organization [facility] Address [address] [place] [address] Care Team Providers Care Lozenge Maker Helper Name Role Phone Ruddy Arreguin MD Primary Care Provider [phone] Encounter Details Date Type Department Care Team (Latest Contact Info) Description 12/20/2004 Outpatient Historical HIS [facility] [place] [address] [id number] BENIGN HYPERTENSION (Primary Dx) Social History Tobacco Use Types Packs/Day Years Used Date Smoking Tobacco: Never Assessed Comments Unknown Sex and Gender Information Value Date Recorded Sex Assigned at Not on file Legal Sex Female 4:51 AM STUDENT SUPPORT COUNSELOR Gender Identity Not on file Sexual Orientation Not on file documented as of this encounter Plan of Treatment Not on file documented as of this encounter Visit Diagnoses Diagnosis Essential hypertension, benign- Primary documented in this encounter Care Teams Lozenge Maker Helper Relationship Specialty Start [place] [address] [id number] PCP - General 10/05/99 documented as of this encounter
--- OUTSIDE RECORDS SUMMARY | 2024-09-09 09:39 | XMS_ITS | Encounter Summary ---
Author Organization [facility] Address [address] [place] [address] Care Team Providers Care Curb Worker Name Role Phone Justino Rai MD Primary Care Provider [phone] Encounter Details Date Type Department Care Team (Latest Contact Info) Description 12/07/2007 Outpatient Historical HIS PATIENT IN A BED David Hernandez MD [address] [place] [address] [place] [id number] Cholelithiasis NOS Social History Tobacco Use Types Packs/Day Years Used Date Smoking Tobacco: Never Assessed Comments Unknown Sex and Gender Information Value Date Recorded Sex Assigned at Not on file Legal Sex Female 4:51 AM SUPERVISOR ENROBING Gender Identity Not on file Sexual Orientation Not on file documented as of this encounter Plan of Treatment Not on file documented as of this encounter Procedures Procedure Name Priority Date/Time Associated Diagnosis Comments PATHOLOGY Routine 12/12/2007 5:00 PM SUPERVISOR ENROBING XR CHOLANGIOGRAM OPERATIVE Routine 12/12/2007 3:36 PM SUPERVISOR ENROBING documented in this encounter Results * PATHOLOGY (12/12/2007 5:00 PM SUPERVISOR ENROBING) FINAL REPORT [address] [address] Patient: REENA JACQUES : 1940 Procedure Date: 12/12/2007 Accession Date: 12/13/2007 Case No: [id number] Ordering Dr: DAVID HERNANDEZ Case types AW, BW, FW, NW and SH are performed by [facility] [place], [place], [place] SURGICAL PATHOLOGY & NON-GYNECOLOGIC CYTOPATHOLOGY REPORT DIAGNOSIS GALLBLADDER, CHOLECYSTECTOMY: - ACUTE ON CHRONIC CHOLECYSTITIS. - CHOLELITHIASIS. Specimen Description: Gallbladder. Operative Procedure: Cholecystectomy. Patient Information/Histor y/Diagnosis: Not given. Gross: Received in a single container labeled Reena Jacques E., gallbladder is a 9.0 x 4.0 x 2.5-cm, previously opened gallbladder with a cystic duct that is 0.2 cm in diameter. The serosa is alejandre, erythematous and smooth. The lumen contains multiple yellow-green multifaceted choleliths that range from 0.1 to 2.6 cm in greatest dimension. The mucosa is alejandre-pink and velvety with a pliable wall that ranges from 0.2 to 0.6 cm in thickness. Wet Pan Operator sections including the cystic duct margin are submitted in cassette A1. LWL/SKW 12.13.2007 01:33 pm Microscopic: Received in a single container, [id number], Reena Jacques. Histologic examination of the specimen labeled gallbladder demonstrates multiple full-thickness sections of gallbladder wall, and a cross-section of the cystic duct margin. The specimen is notable for prominent edema and hemorrhage within the gallbladder wall. These findings are associated with a mixed inflammatory infiltrate and smooth muscle hyperplasia. The overlying gallbladder mucosa appears focally attenuated and eroded. The intact portions of mucosa demonstrate reactive epithelial changes. [facility] 12.14.2007 04:16 pm Staging Form: No. ELECTRONIC SIGNATURE FOR CEASAR MENDEZ M.D.- 12/14/07 06:05 pm INTERFACE SYSTEM 12/12/2007 5:00 PM SUPERVISOR ENROBING us David Hernandez MD PATHOLOGY/CYTOLOGY ORDERABLES Final Result INTERFACE SYSTEM Refer to clinic/hospital department * XR CHOLANGIOGRAM OPERATIVE (12/12/2007 3:36 PM SUPERVISOR ENROBING) Anatomical Region Laterality Modality Abdomen Other 12/12/2007 3:36 PM SUPERVISOR ENROBING Narrative 12/18/2007 4:21 PM SUPERVISOR ENROBING [facility] [address] [place], [place] [address] Admit Date: 12/12/2007 CLEORFOYTRAVIS REENA Parisi Sex: F Admit Prov: DAVID HERNANDEZ Date: 1940 Primary Care Prov: JUSTINO RAI CMRN: [id number] [id number] [facility] Ordering Prov: DAVID HERNANDEZ Accession Number: [id number] Interpretation Fluoroscopic guidance was used by the surgeon to assist with performance of this intra-operative procedure. Please refer to surgeon s operative report for specific details. Dictated by: RADIOLOGY, DEPARTMENT O Electronically signed by: RADIOLOGY, DEPARTMENT 12/18/2007 16:21 Transcribed: 12/16/2007 22:26 AMK Procedure Note Radiology, Radiologist - 12/18/2007 [place] [address] [place], [place] [address] Admit Date: 12/12/2007 SAWYER REENA Parisi Sex: F Admit Prov: DAVID HERNANDEZ Date:1940 Primary Care Prov: NELLALAMONTEROBL Clovis CMRN: [id number] [facility] [id number] IM[facility]ING [facility] Ordering Prov: DAVID HERNANDEZ Interpretation Fluoroscopic guidance was used by the surgeon to assist withperformance of this intra-operative procedure. Please refer to surgeon s operativereport for specific details. Dictated by: RADIOLOGY, DEPARTMENT O Electronically signed by: RADIOLOGY, DEPARTMENT 12/18/2007 16:21 Transcribed: 12/16/2007 22:26 AMK David Hernandez MD DIAGNOSTIC IMAGING ORDERABLES Final Result documented in this encounter Visit Diagnoses Diagnosis Calculus of gallbladder without mention of cholecystitis or obstruction documented in this encounter Care Teams Curb Worker Relationship Specialty [place] [address] [address] PCP - General 10/05/99 documented as of this encounter
--- OUTSIDE RECORDS SUMMARY | 2024-09-09 09:39 | XMS_ITS | Encounter Summary ---
Author Organization [facility] Address [address] [place] [address] Care Team Providers Care Dry Wall Finisher Name Role Phone Ruddy Arreguin MD Primary Care Provider [phone] Encounter Details Date Type Department Care Team (Latest Contact Info) Description 03/11/1999 Outpatient Historical [place] [address] [address] Other chest pain (Primary Dx) Social History Tobacco Use Types Packs/Day Years Used Date Smoking Tobacco: Never Assessed Comments Unknown Sex and Gender Information Value Date Recorded Sex Assigned at Not on file Legal Sex Female 4:51 AM WOOL HAT HYDRAULICKER Gender Identity Not on file Sexual Orientation Not on file documented as of this encounter Plan of Treatment Not on file documented as of this encounter Visit Diagnoses Diagnosis Other chest pain- Primary documented in this encounter Care Teams Dry Wall Finisher Relationship Specialty Start [place] [address] [address] PCP - General 10/05/99 documented as of this encounter
--- OUTSIDE RECORDS SUMMARY | 2024-09-09 09:39 | XMS_ITS | Clinical Summary ---
Author Organization [facility] [address] Address [address] [place] [address] Care Team Providers Care Customer Account Administrator Name Role Phone Landon Argueta DO Primary Care Provider [phone] Allergies No known active allergies Medications raloxifene (EVISTA) 60 mg tablet Take 1 tablet (60 mg total) by mouth daily 1 Active metoprolol XL (TOPROL-XL) 50 mg extended release tablet TAKE 1 TABLET IN COMBINATION WITH A 25 MG TABLET (75 MG TOTAL) 1 Active metoprolol XL (TOPROL-XL) 25 mg extended release tablet 1 Active cholecalciferol (VITAMIN D-3) 1,000 unit capsule Take 1 capsule (1,000 Units total) by mouth daily TAKE TWO TABLETS DAILY Active amLODIPine (NORVASC) 5 mg tablet Take 0.5 tablets (2.5 mg total) by mouth Take 0.5 tab PRN if systolic is over 140 mm/Hg Active [id number] -Lmfolate-algal 27 mg iron-1.13 mg-581.92 mg capsule Take by mouth Active apixaban (Eliquis) 5 mg tablet Take 1 tablet (5 mg total) by mouth 2 (two) times a day 180 tablet 3 5 Active Active Problems Problem Noted Date Diagnosed Date Nonrheumatic tricuspid valve regurgitation 08/05 Nonrheumatic aortic valve insufficiency 06/03/19 23 Shortness of breath 02/17/2022 Persistent atrial fibrillation 06/29/2021 Chronic anticoagulation 06/29/2021 Labile hypertension 03/15/2021 NENITA on CPAP 03/15/2021 Pulmonary hypertension 03/15/2021 Surgical History Surgery Date Site/Laterality Comments CHOLECYSTECTOMY HYSTERECTOMY APPENDECTOMY MYOMECTOMY Medical History Medical History Date Comments Chicken pox Fibroid tumor Foot pain Hypertension Measles Osteopenia Palpitation Sleep apnea Family History Medical History Relation Name Comments Hypertension Father Hip fracture Mother Relation Name Status Comments Father Mother Social History Tobacco Use Types Packs/Day Years Used Date Smoking Tobacco: Never Smokeless Tobacco: Never Tobacco Cessation:Counseling Given: Not Answered Comments Unknown Sex and Gender Information Value Date Recorded Sex Assigned at Not on file Legal Sex Female 4:17 AM SLITTER CREASER SLOTTER OPERATOR Gender Identity Female 03/16/2021 1:02 PM SLITTER CREASER SLOTTER OPERATOR Sexual Orientation Not on file Obstetrics History Last Filed Vital Signs Vital Sign Reading Time Taken Comments Blood Pressure 142/84 04/10/2024 11:41 AM SLITTER CREASER SLOTTER OPERATOR Pulse 79 04/10/2024 11:41 AM SLITTER CREASER SLOTTER OPERATOR Temperature - - Respiratory Rate 16 05/30/2023 9:06 AM CDT Oxygen Saturation 96% 04/10/2024 11:41 AM SLITTER CREASER SLOTTER OPERATOR Inhaled Oxygen Concentration - - Weight 63.5 kg (140 lb) 04/10/2024 11:41 AM SLITTER CREASER SLOTTER OPERATOR Height 165.1 cm (5' 5) 04/10/2024 11:41 AM SLITTER CREASER SLOTTER OPERATOR Body Mass Index 23.3 04/10/2024 11:41 AM SLITTER CREASER SLOTTER OPERATOR Plan of Treatment Health Maintenance Due Date Last Done Comments Depression Screening 1940 Fall Risk Assessment 1940 Osteoporosis Screening-Bone Density Scan 1940 Hepatitis B Screening 01/26/1958 Well Visit 65+ 01/26/2005 Pneumococcal vaccine 65+ (2 of 2 - PPSV23) 12/22/2015 12/21/2014 DTaP/Tdap/Td Vaccine (2 - Td or Tdap) 12/17/2021 12/18/2011 Covid-19 Vaccine ( - 2023-2 5 season) 2023 12/01/2020, 04/14/2020, 03/11/2020 Influenza Vaccine (#1) 2024 , 10/11/2019, 12/21/2018, Additional history exists Zoster Vaccine Completed 09/03/2019, 03/22/2019 Insurance AET MEDICARE AET MEDICARE Care Teams Customer Account Administrator Relationship Specialty Start Date End Date Landon Argueta DO PCP - General 12/25/15
--- OUTSIDE RECORDS SUMMARY | 2024-09-09 09:39 | XMS_ITS | Encounter Summary ---
Author Organization [facility] Address [address] [place] [address] Care Team Providers Care Teradata Solution Architect Name Role Phone Justino Rai MD Primary Care Provider [phone] Encounter Details Date Type Department Care Team (Late st Contact Info) Description 02/19/2008 Outpatient Historical [facility] David Hernandez MD [address] [place] [address] [place] [address] Social History Tobacco Use Types Packs/Day Years Used Date Smoking Tobacco: Never Assessed Comments Unknown Sex and Gender Information Value Date Recorded Sex Assigned at Not on file Legal Sex Female 4:51 AM INSTITUTE DIRECTOR Gender Identity Not on file Sexual Orientation Not on file documented as of this encounter Plan of Treatment Not on file documented as of this encounter Procedures Procedure Name Priority Date/Time Associated Diagnosis Comments CT ABDOMEN PELVIS W CONTRAST Routine 02/19/2008 10:12 AM INSTITUTE DIRECTOR POC CREATININE Routine 02/19/2008 9:12 AM INSTITUTE DIRECTOR documented in this encounter Results * CT ABDOMEN PELVIS W CONTRAST (02/19/2008 10:12 AM INSTITUTE DIRECTOR) Anatomical Region Laterality Modality Abdomen Other 02/19/2008 10:1 2 AM INSTITUTE DIRECTOR Narrative 02/19/2008 1:52 PM INSTITUTE DIRECTOR [address] [address] Admit Date: 02/19/2008 REENA JACQUES Sex: F Admit Prov: DAVID HERNANDEZ Date: 1940 Primary Care Prov: JUSTINO RAI CMRN: [id number] [phone] IM[facility] SERVICES Ordering Prov: N/A Accession Number: [id number] Interpretation CT ABDOMEN WITH CONTRAST 02/19/2008 History: Abnormal pancreas. CT evaluation of the abdomen was performed following oral and intravenous administration of contrast. Scans are compared to 11/28/07. The liver is of normal size without focal defect or biliary dilatation. Spleen is unremarkable. There is no pancreatic mass or inflammation. Adrenal glands are within normal limits. There is no evidence of renal mass or obstruction. There is no adenopathy. IMPRESSION: Normal CT of the abdomen unchanged from 11/28/07. . Dictated by: JAYA NIÑO 02/19/2008 12:42 Electronically signed by: JAYA NIÑO 02/19/2008 13:51 Transcribed: 02/19/2008 13:40 Procedure Note Jaya Niño MD - 02/19/2008 [facility] [address] [place], [place] [address] Admit Date: 02/19/2008 REENA JACQUES Sex: F Admit Prov: DAVID HERNANDEZ Date:1940 Primary Care Prov: JUSTINO RAI CMRN: [id number] [facility] [phone] IMAGING SERVICES Ordering Prov: N/A Interpretation CT ABDOMEN WITH CONTRAST 02/19/2008 History: Abnormal pancreas. CT evaluation of the abdomen was performed following oral andintravenous administration of contrast. Scans are compared to 11/28/07. Theliver is of normal size without focal defect or biliary dilatation. Spleenis unremarkable. There is no pancreatic mass or inflammation. Adrenalglands are within normal limits. There is no evidence of renal mass or obstruction. There is no adenopathy. IMPRESSION: Normal CT of the abdomen unchanged from 11/28/07. . Dictated by: JAYA NIÑO 02/19/2008 12:42 Electronically signed by: JAYA NIÑO 02/19/2008 13:51 Transcribed: 02/19/2008 13:[address] ORDERABLES Final Result * (ABNORMAL) POC CREATININE (02/19/2008 9:12 AM INSTITUTE DIRECTOR) CREATININE POC 1.0 0.6 - 1.3 mg/dL [facility] Comment: The calculation for the estimated GFR on the i-STAT POC instrument has been changed to correspond to the IDMS-traceable MDRD Study, upon the recommendation of the circle edger of the i-STAT instrument. The change was effective in our laboratory 01/14/2008. The impact of this change to the estimated GFR is minimal. This calculation is used by the main laboratory methodology also. GFR, >60 >=60 mL/min/1.7 sq meter [facility] GFR 55(L) >=60 mL/min/1.7 sq meter [facility] Capillary blood specimen (specimen) 02/19/2008 9:12 AM INSTITUTE DIRECTOR 02/19/2008 9:12 AM INSTITUTE DIRECTOR us David Hernandez MD POINT OF CARE TESTING Edited INTERFACE SYSTEM Refer to clinic/hospital department [facility] CLIA# [id number] [address] [place] [address] documented in this encounter Visit Diagnoses Not on filedocumented in this encounter Care Teams Teradata Solution Architect Relationship Specialty [place] [address] [facility] [address] [place] [address] PCP - General 10/05/99 documented as of this encounter
--- OUTSIDE RECORDS SUMMARY | 2024-09-09 09:39 | XMS_ITS | Referral Summary ---
Author Organization [facility] [address] Address [address] [place] [address] Care Team Providers Care Boiler Fireman Name Role Phone Landon Argueta DO Primary Care Provider [phone] Allergies No known active allergies Medications raloxifene [...] if systolic is over 140 mm/Hg Active [id number] -Lmfolate-algal 27 mg iron-1.13 mg-581.92 mg capsule [...] NENITA on CPAP 03/15/2021 Pulmonary hypertension 03/15/2021 Social History Tobacco Use Types Packs/Day Years Used Date Smoking Tobacco: Never Smokeless Tobacco: Never Tobacco Cessation:Counseling Given: Not Answered Comments Unknown Sex and Gender Information Value Date Recorded Sex Assigned at Not on file Legal Sex Female 4:17 AM ROLL CAPPER Gender Identity Female 03/16/2021 1:02 PM ROLL CAPPER Sexual Orientation Not on file Last Filed Vital Signs Vital Sign Reading Time Taken Comments Blood Pressure 142/84 04/10/2024 11:41 AM ROLL CAPPER Pulse 79 04/10/2024 11:41 AM ROLL CAPPER Temperature - - Respiratory Rate 16 05/30/2023 9:06 AM CDT Oxygen Saturation 96% 04/10/2024 11:41 AM ROLL CAPPER Inhaled Oxygen Concentration - - Weight 63.5 kg (140 lb) 04/10/2024 11:41 AM ROLL CAPPER Height 165.1 cm (5' 5) 04/10/2024 11:41 AM ROLL CAPPER Body Mass Index 23.3 04/10/2024 11:41 AM ROLL CAPPER Plan of Treatment Not on file Insurance [employer] MEDICARE AETNA MEDICARE Care Teams Boiler Fireman Relationship Specialty Start Date End Date Landon Argueta DO PCP - General 12/25/15
--- OUTSIDE RECORDS SUMMARY | 2024-09-09 09:39 | XMS_ITS | Encounter Summary ---
Author Organization [facility] Address [address] [place] [address] Care Team Providers Care Nursery Supervisor Name Role Phone Unavailable Primary Care Provider Unavailabl e Encounter Details Date Type Department Care Team (Late st Contact Info) Description 07/31/2023 Lab Requisition [facility] - DermPath Lab [address] [place] [id number] Josemanuel Rabago MD [address] [place] [address] Social History Tobacco Use Types Packs/Day Years Used Date Smoking Tobacco: Never Assessed Comments Unknown Sex and Gender Information Value Date Recorded Sex Assigned at Not on file Legal Sex Female 4:20 AM CDT Gender Identity Not on file Sexual Orientation Not on file documented as of this encounter Plan of Treatment Not on file documented as of this encounter Procedures Procedure Name Priority Date/Time Associated Diagnosis Comments DERMATOPATHOLOGY Routine 07/26/2023 12:0 0 AM CDT documented in this encounter Results * DERMATOPATHOLOGY (07/26/2023 12:00 AM CDT) Case Report Dermatopathology Report Case: [id number] Authorizing Provider: Josemanuel Rabago MD Collected: 07/26/2023 12:00 AM Ordering Location: [facility] - Received: 07/31/2023 08:48 AM DermPath Lab Pathologist: Chay Hernandez MD Specimen: Skin, upper anterior medial thigh 12:28 PM CDT DERMATOPATHOLOGY LABORATORY Final Diagnosis Specimen A. 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 The specimen consists of a shave biopsy measuring 7x7x2 mm. Jar 0. 12:28 PM CDT DERMATOPATHOLOGY LABORATORY Microscopic Description Specimen A. SKIN, upper anterior medial thigh: In the dermis, there are dilated vascular spaces surrounded by thin, widely spaced endothelial cells. 12:28 PM CDT DERMATOPATHOLOGY LABORATORY Disclaimer An external and internal positive and negative controls are appropriate for the histochemical, immunohistochemical and immunofluorescence stain(s) in this case (if any), except where stated explicitly. The performance characteristics of the stain(s) cited in this report were developed and its performance characteristic determined by the Dermatopathology Laboratory at [facility], directed by Dr. Eugene Hernandez. These tests need not be, and therefore are not, approved by the [place] Food and Drug Administration. The tests are used for clinical purposes. Billing Codes Specimen Charges Stain Charges 58472 1 12:28 PM CDT DERMATOPATHOLOGY LABORATORY Embedded Images 12:28 PM CDT DERMATOPATHOLOGY LABORATORY Pathology/Cytolog y TISSUE SPECIMEN FROM SKIN / Unknown 07/26/2023 07/31/2023 8:48 AM CDT Josemanuel Rabago MD LAB - PATHOLOGY/CYTOLOGY ORD ERABLES Final Result DERMATOPATHOLOGY LABORATORY [facility] - Department of Dermatology [address] [phone] documented in this encounter Visit Diagnoses Not on filedocumented in this encounter
--- OUTSIDE RECORDS SUMMARY | 2024-09-09 09:39 | XMS_ITS | Encounter Summary ---
Author Organization [facility] Address [address] [place] [address] Care Team Providers Care Poacher Wringer Operator Name Role Phone Ruddy Arreguin MD Primary Care Provider [phone] Encounter Details Date Type Department Care Team (Latest Contact Info) Description 10/05/1999 Outpatient Historical [facility] [place] [address] [phone] Nonspecific abnormal results of liver function study (Primary Dx) Social History Tobacco Use Types Packs/Day Years Used Date Smoking Tobacco: Never Assessed Comments Unknown Sex and Gender Information Value Date Recorded Sex Assigned at Not on file Legal Sex Female 4:51 AM PIN PUSHER Gender Identity Not on file Sexual Orientation Not on file documented as of this encounter Plan of Treatment Not on file documented as of this encounter Visit Diagnoses Diagnosis Nonspecific abnormal results of liver function study- Primary documented in this encounter Care Teams Poacher Wringer Operator Relationship Specialty Start [place] [address] [address] PCP - General 10/05/99 documented as of this encounter
--- OUTSIDE RECORDS SUMMARY | 2024-09-09 09:39 | XMS_ITS | Encounter Summary ---
Author Organization [facility] Address [address] [place] [address] Care Team Providers Care Carton Forming Machine Helper Name Role Phone Ruddy Arreguin MD Primary Care Provider [phone] Encounter Details Date Type Department Care Team (Late st Contact Info) Description 01/05/2007 Outpatient Historical [facility] [address] [phone] Social History Tobacco Use Types Packs/Day Years Used Date Smoking Tobacco: Never Assessed Comments Unknown Sex and Gender Information Value Date Recorded Sex Assigned at Not on file Legal Sex Female 4:51 AM CLOTH FINISHER Gender Identity Not on file Sexual Orientation Not on file documented as of this encounter Plan of Treatment Not on file documented as of this encounter Visit Diagnoses Not on filedocumented in this encounter Care Teams Carton Forming Machine Helper Relationship Specialty Start [place] [address] [address] PCP - General 10/05/99 documented as of this encounter
--- OUTSIDE RECORDS SUMMARY | 2024-09-09 09:39 | XMS_ITS | Clinical Summary ---
Author Organization [facility] Address [address] [facility] [place] [address] Care Team Providers Care District Fire Chief Name Role Phone Unavailable Primary Care Provider Unavailabl e Source Comments [facility],non-owned Affiliates and Associated Physician Practices is amultiple site organization consisting of ambulatory clinics and hospital sitesin [place], [place], [place] and [place]. This disclosure is being madepursuant to the Care Everywhere program and may not contain all information available regarding this patient. Last updated 17.[facility] [employer] Social History Tobacco Use Types Packs/Day Years Used Date Smoking Tobacco: Never Assessed Comments Unknown Sex and Gender Information Value Date Recorded Sex Assigned at Not on file Legal Sex Female 4:20 AM CDT Gender Identity Not on file Sexual Orientation Not on file Plan of Treatment Health Maintenance Due Date Last Done Comments BONE DENSITY TESTING 1940 DTAP/TDAP/TD VACCINES (1 - Tdap) 01/26/1959 PNEUMOCOCCAL VACCINE 50+ (1 of 1 - PCV) 01/26/1990 ZOSTER VACCINE (1 of 2) 01/26/1990 Respiratory Syncytial Virus (RSV) Vaccine Pt: or over 60 yrs (1 - 1-dose 75+ series) 01/26/2015 COVID-19 VACCINE ( - 2023-2 5 season) 2023 DEPRESSION SCREENING 02/07/2024 MEDICARE AWV CALENDAR YEAR 2024 INFLUENZA VACCINE (#1) 2024 HEPATITIS B VACCINE Aged Out No longe r eligible based on patient's age to complete this topic HIB VACCINE Aged Out No longer eligi ble based on patient's age to complete this topic HPV VACCINE Aged Out No longer eligi ble based on patient's age to complete this topic MENINGOCOCCAL (Group B) VACC INE SHARED DECISION-MAKING Aged Out No longer eligibl e based on patient's age to complete this topic MENINGOCOCCAL GROUPS A/C/Y/W VACCINE Aged Out No longer eligible b ased on patient's age to complete this topic Insurance [facility] MANAGED MEDICARE ADV AENA MEDICARE ADV
--- OUTSIDE RECORDS SUMMARY | 2024-09-09 09:39 | XMS_ITS | Encounter Summary ---
Author Organization [facility] Address [address] [facility] [place] [address] Care Team Providers Care Clarifying Plant Operator Name Role Phone Unavailable Primary Care Provider Unavailabl e Encounter Details Date Type Department Care Team (Late st Contact Info) Description 11/27/2019 Lab Requisition [facility] DermPath Lab [address] [place] [address] Josemanuel Rabago MD [address] [place] [address] Social History Tobacco Use Types [...] Priority Date/Time Associated Diagnosis Comments DERMATOPATHOLOGY Routine 11/26/2019 12:0 0 AM CDT documented in this encounter Results * DERMATOPATHOLOGY (11/26/2019 12:00 AM CDT) Case Report Dermatopathology Report Case: [id number] Authorizing Provider: Josemanuel Rabago MD Collected: 11/26/2019 12:00 AM Ordering Location: [facility] DermPath Lab Received: 11/27/2019 11:23 AM Pathologist: Mouna Merida MD Specimen: Skin, left upper breast 0 4:25 PM CDT DERMATOPATHOLOGY LABORATORY Final Diagnosis Specimen A. SKIN, left upper breast: DERMATOFIBROMA (D23.9) HEMANGIOMA (D18.01) (see microscopic description) 0 4:25 PM CDT DERMATOPATHOLOGY LABORATORY at 1625 CDT Clinical History R/O AK, telangiectasias vs other. 0 4:25 PM CDT DERMATOPATHOLOGY LABORATORY Gross Description Specimen A: Received is one formalin filled container labeled with the patient's name and designated left upper breast. The specimen consists of a shave biopsy measuring 54q2o0nf. Jar 0. 0 4:25 PM CDT DERMATOPATHOLOGY LABORATORY Microscopic Description Specimen A. SKIN, left upper breast: There is epidermal hyperplasia. Within the dermis, there are fibrohistiocytic cells in haphazard array among coarse collagen bundles. These lesional cells are positive for Factor XIIIa immunostain. CD34 shows nonspecific staining. In the dermis, there are dilated vascular spaces surrounded by widely spaced endothelial cells. This case was also reviewed by Dr. Chay Hernandez, who agrees. 0 4:25 PM CDT DERMATOPATHOLOGY LABORATORY Disclaimer An external and internal positive and negative controls are appropriate for the histochemical, immunohistochemical and immunofluorescence stain(s) in this case (if any), except where stated explicitly. The performance characteristics of the stain(s) cited in this report were developed and its performance characteristic determined by the Dermatopathology Laboratory at [facility], directed by Dr. Eugene Hernandez. These tests need not be, and therefore are not, approved by the [place] Food and Drug Administration. The tests are used for clinical purposes. Billing Codes Specimen Charges Stain Charges 39419 1 25589 00158 1 1 0 4:25 PM CDT DERMATOPATHOLOGY LABORATORY Embedded Images 0 4:25 PM CDT DERMATOPATHOLOGY LABORATORY Pathology/Cytolog y TISSUE SPECIMEN FROM SKIN / Unknown 11/26/2019 11/27/2019 11:23 AM CDT Josemanuel Rabago MD LAB - PATHOLOGY/CYTOLOGY ORD ERABLES Final Result DERMATOPATHOLOGY LABORATORY [facility] - Department of Dermatology [address] [phone] documented in this encounter Visit Diagnoses Not on filedocumented in this encounter
== END 2024-09-09 09:25 | disposition home or self-care (01) ==
LOC: ANHIMG 09:25
PROVIDERS: PCP Internal Medicine; Visit Provider Nurse Practitioner
DX: Z12.31 Encounter for screening mammogram for malignant neoplasm of breast (principal)
CPT/HCPCS: 77063; 77067